=== PATIENT | male | born 1960 | race Caucasian/White ===

== ENCOUNTER 2019-01-20 07:00 | Outpatient (CLI) | payer OTHER | END 2019-01-20 07:01 | disposition home or self-care (01) | LOC: MADLAB 07:00 | PROVIDERS: ATTEND Internal Medicine Rheumatology | DX: M19.90 Unspecified osteoarthritis, unspecified site (principal); M06.9 Rheumatoid arthritis, unspecified | CPT/HCPCS: 36415; 85652; 86140 ==